=== PATIENT | female | born 1950 | race Caucasian/White ===

== ENCOUNTER → 2018-08-08 | Outpatient (CLI) | payer OTHER ==
[~2018-08-08] MED LIST: 5-HTP100 MG PO; ASPIRIN EC81 M1 PO; HYZAAR 100-12.1 EACH PO; KRILL OIL500 MG PO; PRILOSEC 20 MG20 MG PO; THERA-M CAPLET1 EACH PO
== END ==
LOC: NUC 08:22
DX: R06.00 Dyspnea, unspecified (principal); I10 Essential (primary) hypertension

== ENCOUNTER → 2019-09-27 | Outpatient (CLI) | payer OTHER | LOC: SJCVC 14:14 | PROVIDERS: ATTEND Internal Medicine Cardiovascular Disease | DX: I45.2 Bifascicular block (principal); R00.1 Bradycardia, unspecified; R94.31 Abnormal electrocardiogram [ECG] [EKG]; I10 Essential (primary) hypertension; R60.9 Edema, unspecified; K21.9 Gastro-esophageal reflux disease without esophagitis; E03.9 Hypothyroidism, unspecified; Z79.82 Long term (current) use of aspirin; Z79.84 Long term (current) use of oral hypoglycemic drugs; Z79.899 Other long term (current) drug therapy ==

== ENCOUNTER → 2019-09-30 | Outpatient (CLI) | payer OTHER | LOC: CAT 13:15 | PROVIDERS: ATTEND Internal Medicine Cardiovascular Disease | DX: Z13.6 Encounter for screening for cardiovascular disorders (principal); I25.10 Atherosclerotic heart disease of native coronary artery without angina pectoris; E78.00 Pure hypercholesterolemia, unspecified ==